=== PATIENT | male | born 2000 | race Caucasian/White ===

== ENCOUNTER 2024-04-02 18:05 | Emergency (ER) | payer SELFPAY ==
[2024-04-02 18:10] VITALS: BP 120/82
[2024-04-02 18:18] VITALS: BP 120/82; BMI 26.2
--- NOTE | 2024-04-02 18:23 | ED.GENMED ---
History of Present Illness
General
Chief Complaint: Alcohol Problem
Source: patient and police
Time Seen by Provider: 04/02/24 18:14
Travel History
Have you had any contact with someone who has COVID-19?: No
Do you have any symptoms of coronavirus? Fever > 100 degrees, chills, cough, shortness of breath, sore throat, loss of taste or smell, muscle aches, or headache?: No
History of Present Illness
History of Present Illness:
23-year-old male brought to the emergency room for intoxication. Patient has history of alcohol misuse. He was arrested for public intoxication. After being seen by a deck engineer he was remanded to custody for 24 hours. Patient was taken to present
and the staff there refused him because they felt he was too intoxicated. Police spoke to patient's father who states the patient has severe alcohol use disorder. He has had alcohol withdrawal seizures.
Phy Exam
Physical Exam
Physical Exam:
General: Awake, Alert, Oriented X3. No acute distress somewhat intoxicated
Vitals: unremarkable
Head: Atraumatic
Eyes: Pupils equal, EOMI
Throat: Airway intact, no exudates
Neck: Trachea midline
Lungs: Clear and equal b/l
Heart: Regular rate, no murmurs
Abd: Soft, Nontender, No pulsatile mass
Neuro: Nonfocal
Skin: Warm, dry, no rash
Extremities: pulses equal b/l, no edema
Scores
Withdrawal Assessment of Alcohol
Withdrawal Assessment Completed?: Not applicable
Course
Orders/Labs/Results
Orders:
Orders
04/02/24 18:23
0.9% Sodium Chloride 1000 ml [Nss] 1,000 ml IV BOLUS
04/02/24 18:25
Basic Metabolic Panel Urgent
Abnormal Lab Results
04/02/24
18:25
Chloride 109 H mmol/L
(98-107)
04/02/24 18:25
Vital Signs
Initial and Last Documented VS:
Initial Vital Signs
Pulse Resp BP
77 15 120/82
04/02/24 18:10 04/02/24 18:10 04/02/24 18:10
Last Documented Vital Signs
Temp Pulse Resp BP Pulse Ox
98.1 F 78 16 124/64 96
04/02/24 18:18 04/02/24 19:30 04/02/24 19:30 04/02/24 19:00 04/02/24 18:30
MDM/Problems Addressed
Differential Diagnosis Includes:
Alcohol intoxication
MDM/Problems Addressed:
Patient was arrested by police for public intoxication. He has a license from [place] and therefore was placed under arrest and seen by a deck engineer who remanded him to custody of the present for 24 hours. When the police surgeon attempted to
take the patient to correction they refused to accept him without medical clearance. Patient admits to drinking alcohol. He denies other drug use. He was observed in the emergency room for 2 hours and had a positive trajectory. He was able to stand
and ambulate on his own. There is no medical issue requiring hospitalization or treatment. He is cleared for incarceration. I appreciate that the patient has had issues with alcohol withdrawal in the past. There is certainly no indication for
benzos at this time. The present should obviously be familiar with inmates who have drug and alcohol use disorder and protocols for such.
*Pulse Oximetry
Patient hypoxic: no
*Critical Care Note
Total Time (30-74mins, 75-104mins- exclusive of procedures): Not Applicable
ED Attending Note
-
Portions of this chart may have been created with voice recognition software.� Occasional wrong word or��sound alike� substitutions may have occurred due to the inherent limitations of voice recognition software.
Discharge Plan
Departure
Patient Disposition: Intermediate
Date of Disposition: 04/02/24
Time of Disposition: 19:55
Condition: Good
Discharge Problem:
Alcohol intoxication
Instructions: Alcohol Intoxication ED
Prescriptions:
No Action
No Current Medications
0
Activity Restrictions/Additional Instructions:
Pt is cleared for incarceration
Interventions
Interventions:
*Risk Screen - Suicide Last Done: 04/02/24 18:18
*General Assessment Last Done: 04/02/24 18:18
*Neglect/Abuse Screening Last Done: 04/02/24 18:18
ED- Fall Risk Assessment Last Done: 04/02/24 20:00
*ED COVID-19 Vaccine History Last Done: 04/02/24 18:18
*Nursing Disposition Last Done: 04/02/24 20:00
ED- Neurological Assessment Last Done: 04/02/24 18:26
ED-Psychological Assessment Last Done: 04/02/24 18:26
Discharge Date and Time
Discharge Date/Time: 04/02/24 20:13
Print Language: STATELESS
[2024-04-02] MEDS: NSS 1000 IV (18:26)
[2024-04-02 18:55] LABS: Blood Urea Nitrogen 10 mg/dl (9-20); Calcium 8.6 mg/dl (8.4-10.2); Carbon Dioxide 24 mmol/L (22-30); Chloride 109 mmol/L (98-107); Estimated Creatinine Clearance > 125 ml/min; Glucose 91 mg/dl (70-99); Potassium 3.9 mmol/L (3.5-5.1); Sodium 143 mmol/L (135-145); eGFR > 60.00
[2024-04-02 19:00] VITALS: BP 124/64
== END 2024-04-02 20:13 ==
LOC: EMR 18:05
PROVIDERS: EMERGENCY PHYSICIAN Emergency Medicine
DX: F10.229 Alcohol dependence with intoxication, unspecified (principal); Z65.3 Problems related to other legal circumstances; Z02.79 Encounter for issue of other medical certificate; R56.9 Unspecified convulsions
CPT/HCPCS: 99284; 96360; 80048

== ENCOUNTER 2024-05-12 08:52 | Inpatient (IN) | payer OTHER, SELFPAY ==
[2024-05-12] VITALS (13 sets, daily range): BP systolic 118–169; BP diastolic 70–145; BMI 25.3
--- NOTE | 2024-05-12 06:06 | ED.GENMED ---
History of Present Illness
General
Chief Complaint: Withdrawal Symptoms
Source: patient and family
Exam Limitations: none
Time Seen by Provider: 05/12/24 05:57
Nursing documentation reviewed up to this point in time: agreed with
History of Present Illness
History of Present Illness:
23-year-old male presents emergency department due to alcohol withdrawal seizures. He had seizures yesterday. His last drink was 12 hours ago. He has had withdrawal in the past and has been to rehab in the past.
Past History
Past History
ED Past Medical History: Seizures (Alcohol withdrawal)
ED Past Surgical History: Orthopedic (Left arm surgery)
Social History
Tobacco: Smoker
Alcohol: Chronic alcoholic
Drug: Cocaine
Living: with family
Review of Systems
Review of Systems
Allergies reviewed?: Yes
All Other Systems: Not applicable
Constitutional: Reports no symptoms
EENT: Reports no symptoms
Respiratory: Reports no symptoms
Cardiac: Reports no symptoms
ABD/GI: Reports no symptoms
: Reports no symptoms
Musculoskeletal: Reports no symptoms
Skin: Reports no symptoms
Neurological: Reports other (Seizures, tremor)
Endocrine: Reports no symptoms
Hematologic/Lymphatic: Reports no symptoms
Psychiatric: Reports no symptoms
Phy Exam
Physical Exam
Physical Exam:
Physical Exam
General: Hypertensive, afebrile
Neck: supple. no meningeal signs. normal posterior pharynx
Heart: s1/s2 regular rate and rhythm, no murmur. equal radial
pulses.
HEENT: Pupils equal round reactive to light, EOMI
Lungs: no acute respiratory distress. clear bilaterally
Abdomen: normal bowel sounds. not tender. no CVAT
Neuro: alert and oriented. no focal neurological deficits cranial nerves II through XII intact, tremor
Skin: no rash
Psychiatric: well kept. interactive and cooperative
Extremities: no edema. no calf tenderness. negative homans. good distal pulses
Scores
Withdrawal Assessment of Alcohol
Withdrawal Assessment Completed?: Yes
Nausea and Vomiting: Mild nausea with no vomiting
Tactile Disturbances: Moderately severe hallucinations
Tremor: Moderate, with patient's arms extended
Auditory Disturbances: Not present
Paroxysmal Sweats: No sweat visible
Visual Disturbances: Moderate sensitivity
Anxiety: Mild anxiety
Headache, Fullness in Head: Not present
Agitation: Normal activity
Orientation and clouding of sensorium: Oriented and can do serial additions
Total CIWA Score: 13
Alcohol Withdrawal Medication Recommendation: Equal to MSAS Score 5-7. Lorazepam 1mg IV or PO NOW & re-assess q2hrs
Course
Orders/Labs/Results
Orders:
Orders
05/12/24 06:05
IV Insert/Care/Rem.- Treatment PRN
05/12/24 06:06
Lorazepam [Ativan] 1 mg IV NOW STA
05/12/24 06:15
0.9% Sodium Chloride 1000 ml [Nss] 1,000 ml IV 999 mls/hr
05/12/24 06:32
Alcohol Urgent
Complete Blood Count/With Diff Urgent
Comprehensive Metabolic Panel Urgent
Magnesium Urgent
Phosphorus Urgent
Prothrombin Time Urgent
05/12/24 06:37
Electrocardiogram (*1) Stat
Reason for Study: Other
Other Reason for Exam: alcohol withdrawal, seizure
Electrocardiogram (*1) Urgent
Reason for Study: QTc Monitoring
EKG- Treatment ONCE
05/12/24 07:27
FOLic ACID [Folvite] 1 mg 0.9% Sodium Chloride 50 ml [Nss] 50 ml IV NOW
05/12/24 07:45
Fentanyl, Urine Urgent
Urinalysis Reflex To Culture Urgent
Date Specimen was Collected: 05/12/24
Time Specimen was Collected: 07:21
Urine Drug Abuse Screen Urgent
Date Specimen was Collected: 05/12/24
Time Specimen was Collected: 07:21
05/12/24 07:59
Admit/Transfer Patient As Directed
Co-Sign Provider:
Level of Care: Inpatient admission
Assign to:: ICU
Physician / Group: DR Perez
Diagnosis: Seizure/Alcohol withdrawal
Reason for Hospitalization: pte p/w alcohol withdarwal seizures
Expected length of stay greater than two midnights?: Yes
ELOS- Estimated Length of Stay in days: 2
I certify the patient meets the requirements for IP care: Yes
05/12/24 08:00
Code Status As Directed
Resuscitation Status: Full Code
05/12/24 08:06
Neurological Checks As Directed
Frequency: Per unit guidelines
05/12/24 08:15
0.9% Sodium Chloride 1000 ml [Nss] 1,000 ml IV 100 mls/hr
Abnormal Lab Results
05/12/24 05/12/24
06:32 07:45
WBC 4.5 L 10^3/uL
(4.8-10.8)
Immature Gran % 0.9 H %
(0-0.5)
Monocytes % 10.1 H %
(1.7-9.3)
Carbon Dioxide 19 L mmol/L
(22-30)
BUN 6 L mg/dl
(9-20)
Glucose 102 H mg/dl
(70-99)
Phosphorus 2.4 L mg/dl
(2.5-4.5)
Urine Cocaine Screen Positive H
(Negative)
05/12/24 06:32
05/12/24 06:32
Vital Signs
Initial and Last Documented VS:
Initial Vital Signs
Pulse Resp BP Pulse Ox
90 18 169/145 100
05/12/24 05:48 05/12/24 05:48 05/12/24 05:48 05/12/24 05:48
Last Documented Vital Signs
Pulse Resp BP Pulse Ox
107 14 128/75 97
05/12/24 09:15 05/12/24 09:15 05/12/24 08:30 05/12/24 08:30
MDM/Problems Addressed
Differential Diagnosis Includes:
Alcohol withdrawal, epileptic seizures
MDM/Problems Addressed:
23-year-old male with alcohol withdrawal seizures. Admit to hospitalist.
Chronic conditions affecting care: Other (Chronic alcoholic)
Acute Exacerbation and/or Progression of Chronic Illness: Other (Chronic alcoholic)
*Pulse Oximetry
Patient hypoxic: no
*EKG
Interpreted by ED Provider?: Yes
EKG Intrepretation Date: 05/12/24
EKG Intrepretation Time: 06:42
Interpretation: normal
Comparison EKG: no comparison EKG present
Heart Rate: 81
Rate: normal
Rhythm: sinus and sinus arrhythmia
[place]: normal axis
Interval: normal interval
QRS Pattern: normal QRS
Ischemia: no ischemia
*Model [employer] Plaster Interpretation
Rate: normal
Interpretation: normal
Heart Rate: 80
Rhythm: sinus
*Critical Care Note
Total Time (30-74mins, 75-104mins- exclusive of procedures): 30
comment:
Critical care statement: A total of 30 minutes of critical care time was provided for this patient. This includes management of unstable vital signs, evaluation of the patient at bedside, reviewing the patient's pertinent medical records, discussion
with consultants, review of old EKGs and review of pertinent medical records. This time with separate from time utilized to perform the aforementioned documented procedures
ED Attending Note
-
Portions of this chart may have been created with voice recognition software.� Occasional wrong word or��sound alike� substitutions may have occurred due to the inherent limitations of voice recognition software.
Discharge Plan
Departure
Patient Disposition: Admit
Date of Disposition: 05/12/24
Time of Disposition: 07:13
Admit to: ICU
Presentation/result/management discussed w/ accepting MD/DO: Hospitalist
Patient with high blood pressure during this ER visit?: Yes
Condition: Fair
Discharge Problem:
Alcohol withdrawal seizure
Interventions
Interventions:
ED- Fall Risk Assessment Last Done: 05/12/24 06:37
ED- Neurological Assessment Last Done: 05/12/24 06:37
ED-Psychological Assessment Last Done: 05/12/24 06:37
[2024-05-12] MEDS: NSS 1000 IV ×3 (06:25→19:00)
[2024-05-12] MEDS: ATIVAN 1 MG IV (06:26)
[2024-05-12 06:51] LABS: % Basophils 1.5 % (0-2); % Eosinophils 2.4 % (0-6); % Immature Granulocytes 0.9 % (0-0.5); % Lymphocytes 39.4 % (20.5-51.1); % Monocytes 10.1 % (1.7-9.3); % Neutrophils 45.7 % (42.2-75.2); Absolute Basophils 0.1 10^3/uL (0-0.2); Absolute Eosinophils 0.1 10^3/uL (0-0.7); Absolute Lymphocytes 1.8 10^3/uL (1.2-3.4); Absolute Monocytes 0.5 10^3/uL (0.1-0.6); Absolute Neutrophils 2.1 10^3/uL (1.4-6.5); Hematocrit 44.3 % (39.0-52.0); Hemoglobin 15.5 g/dL (13.0-18.0); Mean Corpuscular Hgb 30.3 pg (27.0-31.0); Mean Corpuscular Volume 86.7 fL (80.0-94.0); Mean Platelet Volume 9.7 fL (7.4-10.4); Nucleated Red Blood Cells % 0 % (-); Platelet Count 248 10^3/uL (130-400); Red Blood Cell Count 5.11 10^6/uL (4.70-6.10); White Blood Cell Count 4.5 10^3/uL (4.8-10.8)
[2024-05-12 07:03] LABS: INR 1.11; PT 14.1 Sec (11.4-14.6)
[2024-05-12 07:04] LABS: ALT (SGPT) 20 U/L (0-50); AST (SGOT) 28 U/L (17-59); Albumin 4.4 g/dl (3.5-5.0); Alcohol 104 mg/dl; Alkaline Phosphatase 98 U/L (38-126); Blood Urea Nitrogen 6 mg/dl (9-20); Calcium 8.9 mg/dl (8.4-10.2); Carbon Dioxide 19 mmol/L (22-30); Chloride 106 mmol/L (98-107); Estimated Creatinine Clearance > 125 ml/min; Glucose 102 mg/dl (70-99); Magnesium 1.7 mg/dl (1.6-2.3); Phosphorus 2.4 mg/dl (2.5-4.5); Potassium 3.7 mmol/L (3.5-5.1); Sodium 141 mmol/L (135-145); Total Bilirubin 0.8 mg/dl (0.2-1.3); Total Protein 6.7 g/dl (6.3-8.2); eGFR > 60.00
[2024-05-12] MEDS: NSS IV ×5 (07:21→12:43)
[2024-05-12] MEDS: FOLVITE 50.2000000000000028 MG IV (07:48)
[2024-05-12 08:03] LABS: Urine Albumin Negative (Neg - Trace); Urine Bilirubin Negative (Negative); Urine Character Clear (Clear); Urine Color Yellow; Urine Glucose Negative (Negative); Urine Ketone Negative (Negative); Urine Leukocyte Negative (Negative); Urine Nitrite Negative (Negative); Urine Occult Blood Negative (Negative); Urine Urobilinogen Negative (Neg - 1+)
--- NOTE | 2024-05-12 08:05 | HPS.HSE ---
Family Physician
-
Family Physician: * NONE
Chief Complaint
-
Seizures
History of Present Illness
Patient 23 years old male with history of alcohol use disorder came into the hospital with generalized anxiety and having a seizure event yesterday. Patient has been drinking more than usual and his last drink was about 12 hours ago and he has been
trying to detox by himself and had a seizure yesterday. Patient continues to have anxiety, nausea, generalized withdrawal symptoms and decided to come to the hospital for further evaluation. She denies chest pain or shortness of breath. Denies
fevers or chills. He was referred to hospitalist service for further evaluation.
Medical History
Past Medical History
Past Medical History: Reports Other (Alcohol use disorder.)
Past Surgical History: Reports None
Social History
Tobacco: Smoker
Alcohol: Daily
Drug: None
Family History
Family History: Not pertinent
Allergies / Home Medications
Allergies reflects when Allergies were last updated in [facility].
Home Medications with original date entered in [facility]
Allergy/Medication List:
Allergies
Allergy/AdvReac Type Severity Reaction Status Date / Time
NKA - No Known Allergies Allergy Pharmacy Uncoded 05/12/24 05:48
to Review
Home Medications
dextran 70-hypromellose eye drops in a dropperette (Artificial Tears (PF) drops in a dropperette) 2 drp BOTH EYES DAILYPRN PRN dry eyes 05/12/24
ibuprofen 200 mg tablet 600 mg PO BIDPRN PRN mild pain 05/12/24
Review of Systems
-
A 12 point ROS was completed and negative except as noted: Yes
Physical Exam
Vital Signs
Vital Signs
Pulse Resp BP Pulse Ox
86 15 130/89 98
05/12/24 07:15 05/12/24 07:15 05/12/24 07:00 05/12/24 07:15
Physical exam:
General: Well Developed, Well Nourished and mild Apparent Distress
HEENT: Normocephalic, Atraumatic and Moist Mucous Membranes
Respiratory: Clear to Auscultation; Negative Wheezes, Rales or Rhonchi
Cardiac: Regular Rhythm and S1/S2
GI: Soft, Nontender and Nondistended
Musculoskeletal: No Clubbing, No Cyanosis and No Edema
Neuro: Awake, Alert and Oriented. Tremors present. No nystagmus. No tongue fasciculation
Psych: Calm
Physical Exam
General: Other
Laboratory Results
-
05/12/24 06:32
05/12/24 06:32
Laboratory Results
PT 14.1 Sec (11.4-14.6) 05/12/24 06:32
INR 1.11 05/12/24 06:32
Total Bilirubin 0.8 mg/dl (0.2-1.3) 05/12/24 06:32
AST 28 U/L (17-59) 05/12/24 06:32
ALT 20 U/L (0-50) 05/12/24 06:32
Alkaline Phosphatase 98 U/L (38-126) 05/12/24 06:32
Data Reviewed
-
Lab Data: Labs Reviewed by me
Impression/Plan
-
IMPRESSION:
Patient 23 years old man with history of alcohol abuse came into the hospital with alcohol withdrawal. Patient had a seizure alcohol withdrawal. Patient at high risk of alcohol withdrawal morbidity mortality including delirium tremens so needs to
be monitored in the hospital and manage accordingly.
Impression:
Alcohol withdrawal
Conditions prior to presentation:
Alcohol use disorder
PLAN:
IV fluids
MSA protocol including Ativan as needed
Thiamine and folate
B-CARES evaluation
gun club manager eval for discharge disposition
Lovenox SQ for DVT prophylaxis
CODE STATUS full code
Will give further recommendations based on his clinical course
Time spent 55 minutes
[2024-05-12 08:15] LABS: Amphetamines Negative (Negative); Barbiturates Negative (Negative); Benzodiazepines Negative (Negative); Buprenorphine Negative (Negative); Cocaine Positive (Negative); Marijuana Negative (Negative); Methadone Negative (Negative); Methamphetamines Negative (Negative); Opiates Negative (Negative); Phencyclidine Negative (Negative); Tricyclic Antidepressants Negative (Negative)
[2024-05-12 09:00] LABS: Fentanyl, Urine Negative (Negative)
[2024-05-12] MEDS: FOLVITE 1 MG PO (12:48)
[2024-05-12] MEDS: THIAMINE INJECTION 200 MG IV (20:07)
[2024-05-13 03:00] VITALS: BP 119/65
[2024-05-13] MEDS: NSS 1000 IV (04:17)
[2024-05-13 07:05] VITALS: BP 131/68
[2024-05-13 07:42] LABS: % Basophils 1.2 % (0-2); % Eosinophils 3.8 % (0-6); % Immature Granulocytes 0.7 % (0-0.5); % Lymphocytes 28.9 % (20.5-51.1); % Monocytes 11.3 % (1.7-9.3); % Neutrophils 54.1 % (42.2-75.2); Absolute Basophils 0.1 10^3/uL (0-0.2); Absolute Eosinophils 0.2 10^3/uL (0-0.7); Absolute Lymphocytes 1.7 10^3/uL (1.2-3.4); Absolute Monocytes 0.7 10^3/uL (0.1-0.6); Absolute Neutrophils 3.2 10^3/uL (1.4-6.5); Hematocrit 43.2 % (39.0-52.0); Hemoglobin 15.4 g/dL (13.0-18.0); Mean Corp Hgb Conc. 35.6 g/dL (33.0-37.0); Mean Corpuscular Hgb 30.7 pg (27.0-31.0); Mean Corpuscular Volume 86.2 fL (80.0-94.0); Mean Platelet Volume 10.2 fL (7.4-10.4); Nucleated Red Blood Cells % 0 % (-); Platelet Count 235 10^3/uL (130-400); Red Blood Cell Count 5.01 10^6/uL (4.70-6.10); Red Cell Dist. Width 11.9 % (11.5-14.5); White Blood Cell Count 5.9 10^3/uL (4.8-10.8)
--- NOTE | 2024-05-13 08:13 | W.PN.HOSP.TC ---
Today's Communication/Plan
-
Discharge planning today.
Assessment / Plan
Assessment / Plan
Physical exam:
General: Well Developed, Well Nourished and No Apparent Distress
HEENT: Normocephalic, Atraumatic and Moist Mucous Membranes
Respiratory: Clear to Auscultation; Negative Wheezes, Rales or Rhonchi
Cardiac: Regular Rhythm and S1/S2
GI: Soft, Nontender and Nondistended
Musculoskeletal: No Clubbing, No Cyanosis and No Edema
Neuro: Awake, Alert and Oriented
Psych: Calm
A/P:
Impression:
Alcohol withdrawal with presumed seizures-currently no active withdrawal
Polysubstance abuse
Nicotine use disorder
Conditions prior to presentation:
Alcohol use disorder
PLAN:
Patient anxious today but no signs of withdrawal at all. He has not required any benzodiazepines.
Urine toxicology positive for cocaine.
Stop IV fluids
Discontinue cardiac monitoring
Discussed with RN at bedside
Plan to discharge today
Has not required any benzodiazepines from alcohol withdrawal today.
B-CARES evaluation
leasing property manager eval for discharge disposition
Lovenox SQ for DVT prophylaxis
CODE STATUS full code
Anticipated Discharge: Today
Subjective/Interval History
-
Date of Service: May 13, 2024
Patient anxious today but no signs of withdrawal at all. He has not required any benzodiazepines. He denies any nausea or vomiting or palpitations or chest pain or shortness of breath.
Objective Data
-
Labs:
Laboratory Results
05/13/24
07:01
WBC 5.9
Hgb 15.4
Hct 43.2
Plt Count 235
Sodium Pending
Potassium Pending
Chloride Pending
Carbon Dioxide Pending
BUN Pending
Creatinine Pending
Glucose Pending
Calcium Pending
Total Bilirubin Pending
AST Pending
ALT Pending
Alkaline Phosphatase Pending
Vital Signs:
Vital Signs
Temp Pulse Resp BP Pulse Ox
98.4 F 69 16 131/68 99
05/13/24 07:05 05/13/24 07:05 05/13/24 07:05 05/13/24 07:05 05/13/24 07:05
I&O
05/12/24 05/13/24 05/14/24
06:59 06:59 06:59
Intake Total 3120 / 3120
Balance 3120 / 3120
[2024-05-13 08:24] LABS: ALT (SGPT) 25 U/L (0-50); AST (SGOT) 36 U/L (17-59); Albumin 4.1 g/dl (3.5-5.0); Alkaline Phosphatase 110 U/L (38-126); Blood Urea Nitrogen 7 mg/dl (9-20); Calcium 9.2 mg/dl (8.4-10.2); Carbon Dioxide 23 mmol/L (22-30); Chloride 108 mmol/L (98-107); Estimated Creatinine Clearance > 125 ml/min; Glucose 93 mg/dl (70-99); Potassium 3.9 mmol/L (3.5-5.1); Sodium 139 mmol/L (135-145); Total Bilirubin 1.8 mg/dl (0.2-1.3); Total Protein 6.3 g/dl (6.3-8.2); eGFR > 60.00
[2024-05-13] MEDS: FOLVITE 1 MG PO (08:33)
[2024-05-13] MEDS: THIAMINE INJECTION 200 MG IV (08:33)
--- NOTE | 2024-05-13 11:04 | CM ---
ABIGAIL met with Nicolas this AM to provide support and offer [facility] contact for ongoing assistance.
Nicolas recently moved to this area from [place] and has been working as a gallery or museum curator (day work); currently uninsured. He has been in recovery, relapsed and was trying to detox himself at home, however he had a seizure and ultimately
presented to the hospital. He advised that he is in a mandatory outpatient treatment program, but was not able to provide any details.
Nicolas has a sponsor, but not locally. He is familiar with the [employer] and will use this to find local AA meetings for support.
Nelda from [facility] will be calling Nicolas on his cell phone to discuss options and assist with resources and planning.
Plan: Nicolas will return home and pursue services based on options discussed with [facility]. He is anxious to go home today and plans to go to work tomorrow.
--- NOTE | 2024-05-13 12:16 | W.DCSUMMARY ---
Discharge Summary
Discharge Data
Date of Admission: 05/12/24
Date of Discharge: 05/13/24
-
Pending Results: No
Hospital Course
Patient 22 years old male with history of alcohol use disorder came into the hospital for alcohol withdrawal. Patient has reported anesthesia prior to coming the day before NDT INSPECTOR. He was started on alcohol withdrawal protocol. His urine toxicology
was positive for cocaine. His labs were unremarkable including electrolytes and liver function test and renal function. Patient required minimal benzodiazepines the first day but the second days he has not required any benzodiazepines and he is
eager to go home. Patient discussed with watch caser and [facility] for alcohol and drug rehabilitation options. Patient is going to be discharged in relatively stable condition today.
Discharge Plan
-
Patient Disposition: Home (Routine Discharge)
Discharge Diagnosis/Procedures: Alcohol use disorder. Alcohol withdrawal. Anxiety, unspecified.
Diet: Regular
Additional Diets: Abstain from alcohol or cocaine or any other illicit drugs. No smoking or vaping.
Activity: As tolerated
Blood Work: Please PCP to order CBC, CMP within 1 week
Stand Alone Forms: Return to Work
Referrals:
Primary care, provider [Other] (See less than 1 week)
Prescriptions:
Continued
ibuprofen 200 mg Tablet
600 mg PO BIDPRN PRN (Reason: mild pain)
Artificial Tears (PF) Dropperette
2 drp BOTH EYES DAILYPRN PRN (Reason: dry eyes)
Discharge Orders:
Discharge Patient (As Directed); Ordered 05/13/24
Ordered By: Timmy Perez
Discharge Date and Time
Discharge Date/Time: 05/13/24 13:23
Print Language: KAZAKH
[2024-05-13 12:44] VITALS: BP 133/89
== END 2024-05-13 13:23 | disposition home or self-care (01) | DRG 897 ==
LOC: 4 EAST ACU 08:52
PROVIDERS: ADMITTING PHYSICIAN Hospitalist; EMERGENCY PHYSICIAN Emergency Medicine
DX: F10.239 Alcohol dependence with withdrawal, unspecified (principal); F17.200 Nicotine dependence, unspecified, uncomplicated; F41.9 Anxiety disorder, unspecified
CPT/HCPCS: 80053; 80306; 80307; 81003; 82077; 83735; 84100; 85025; 85610; 93005; 96365; 96375; 99291; 99406

== ENCOUNTER 2025-09-24 21:22 | Inpatient (IN) | payer OTHER, SELFPAY ==
[2025-09-24] VITALS (8 sets, daily range): BP systolic 117–146; BP diastolic 71–102; BMI 27.0; BMI 26.8
[2025-09-24 16:41] LABS: Hematocrit 46.3 % (39.0-52.0); Hemoglobin 15.6 g/dL (13.0-18.0); Mean Corp Hgb Conc. 33.7 g/dL (33.0-37.0); Mean Corpuscular Volume 89.2 fL (80.0-94.0); Nucleated Red Blood Cells % 0 % (-); Platelet Count 250 10^3/uL (130-400); Red Cell Dist. Width 13.3 % (11.5-14.5)
[2025-09-24 16:57] LABS: ALT (SGPT) 148 U/L (0-50); AST (SGOT) 264 U/L (17-59); Albumin 4.7 g/dl (3.5-5.0); Alkaline Phosphatase 116 U/L (38-126); Blood Urea Nitrogen 7 mg/dl (9-20); Calcium 8.9 mg/dl (8.4-10.2); Carbon Dioxide 24 mmol/L (22-30); Chloride 110 mmol/L (98-107); Estimated Creatinine Clearance > 125 ml/min; Glucose 96 mg/dl (70-99); Potassium 3.6 mmol/L (3.5-5.1); Sodium 147 mmol/L (135-145); Total Protein 7.3 g/dl (6.3-8.2); eGFR > 60.00
[2025-09-24] MEDS: ATIVAN 1 MG IV ×2 (17:03→20:13)
[2025-09-24] MEDS: NSS 1000 IV (17:03)
[2025-09-24 17:33] LABS: Ammonia < 9 umol/L (9-30)
[2025-09-24] MEDS: ATIVAN 2 MG IV (18:37)
--- NOTE | 2025-09-24 19:48 | ED.GENMED ---
History of Present Illness
General
Chief Complaint: Alcohol Problem
Source: patient
Time Seen by Provider: 09/24/25 16:30
History of Present Illness
History of Present Illness:
Note:
CHIEF COMPLAINT(S)
Alcohol withdrawal symptoms, facial twitching, and concerns of not eating for several days.
HISTORY OF PRESENT ILLNESS
The patient, a 24-year-old male, presents with symptoms consistent with alcohol withdrawal. He reports consuming significant amounts of alcohol regularly and has decided to decrease his intake due to the negative impact it has had on his life. He
states that he has been experiencing facial twitching and has not eaten for the past four days. He expresses concern about electrolyte disturbances potentially causing these symptoms. The patient has a history of previous attempts to stop drinking
and managed a period of sobriety, but ultimately resumed alcohol consumption. He admits to recent use of Xanax, though claims its not habitual. He denies recent fevers, injuries, or experiencing any recent cuts or lacerations.
The patient mentions prior episodes that required medical attention due to alcohol use, previously involving medication like Librium. He is concerned about his ability to work and manage family responsibilities, mentioning the importance of
maintaining his role for his child. He seeks a solution that enables him to return to work promptly.
PAST MEDICAL AND SURGICAL HISTORY
The patient underwent right ankle surgery last year in May 2022. He also reports using Xanax recently.
SOCIAL DETERMINANTS AFFECTING HEALTH
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 There is an expressed need to return to work, indicating financial pressures.
MEDICATIONS
No current medications mentioned.
REVIEW OF SYSTEMS
- General: No recent fevers.
- Neurological: Reports facial twitching.
- Gastrointestinal: Reports not eating for the last four days.
- Musculoskeletal: No recent injuries.
- Respiratory: No recent respiratory concerns.
- Skin: No recent lacerations or injuries reported.
PHYSICAL EXAM
General: Alert, no acute distress observed.
Skin: Warm, well-perfused.
Head: Facial twitching noted; normocephalic, atraumatic.
Neck: Supple, trachea midline.
Eye, Ears, Nose, and Mouth: Oral mucosa moist.
Cardiovascular: Regular rhythm, no edema.
Respiratory: Respirations are non-labored.
Gastrointestinal: Abdomen nondistended.
Musculoskeletal: Normal range of motion, normal strength.
Neurological: Alert and oriented to person, place, time, and situation, facial twitching noted, no lower extremity twitching.
Psychiatric: Cooperative, appropriate mood & affect.
PROBLEM LIST
Acute:
- Alcohol withdrawal symptoms
- Facial twitching
- Starvation ketogenesis due to not eating
Chronic:
- History of alcohol dependence
- Previous right ankle surgery
PLAN
- Monitor patient and provide IV fluids to address dehydration and potential electrolyte imbalances.
- Evaluate lab results for electrolyte disturbances and liver function.
- Discuss options for alcohol withdrawal management, including possible Librium treatment.
- Consider rehabilitation options if labs indicate significant issues.
- Update tetanus immunization as needed.
DIFFERENTIAL DIAGNOSIS
The Differential Diagnosis includes, in no particular order and is not limited to:
- Alcohol withdrawal syndrome
- Electrolyte imbalance, possibly hyponatremia or hypocalcemia
- Alcoholic ketoacidosis
- Anxiety-induced twitching
- Nutritional deficiencies secondary to poor intake
- Primary neuromuscular disorder
- Thyroid dysfunction
- Medication side effects, including from Xanax use
- Hepatic encephalopathy due to liver dysfunction
- Structural brain disorder (e.g., seizure activity secondary to chronic alcohol use)
CARE-UPDATE
09/24/25 - 19:48
Patient agreed to stay overnight for stabilization. Blood pressure and heart rate remain elevated, suggesting active withdrawal. Facial twitching has ceased. Plan is to administer IV fluids to improve stability. Patient will be considered for taper
upon discharge, with follow-up in outpatient care. Discussed the possibility of using naltrexone or alternatives in the future. Encouraged patient to focus on immediate recovery and reassess work obligations as condition improves. Will order
additional labs for further assessment.
Disposition:
SUMMARY OF ENCOUNTER
A 24-year-old male presented with facial twitching, potentially indicative of focal seizures, and symptoms consistent with alcohol withdrawal. The patients twitching resolved after administration of intravenous lorazepam. Initial labs showed
hyponatremia, elevated liver function tests, normal ammonia levels, and electrolyte imbalances. Due to persistent hypertension, elevated EWS score, and a history of seizures, the decision was made to admit the patient for further monitoring and
management.
DISPOSITION
Admit.
ASSESSMENT
The patient likely experienced focal seizures as part of alcohol withdrawal syndrome, compounded by electrolyte imbalance and potentially other systemic stressors.
EMERGENCY TREATMENTS ADMINISTERED
Intravenous lorazepam (Ativan).
REASSESSMENT
On reassessment, facial twitching resolved following administration of intravenous lorazepam.
PLAN
Admit the patient for further monitoring and treatment for suspected seizures due to alcohol withdrawal. Continue to monitor and manage hypertension, electrolyte imbalances, and liver function abnormalities. Initiate a benzodiazepine taper and
evaluate for longer-term care options like rehabilitation.
INDEPENDENT REVIEW OF LABS AND INTERPRETATION OF TESTS
- My independent review of the CBC is normal.
- My independent review of chemistry indicates hyponatremia (sodium 147 mmol/L), potassium 3.6 mmol/L, chloride 110 mmol/L, and creatinine 0.8 mg/dL.
- My independent review of liver function tests shows elevated levels (AST 264 U/L, ALT 148 U/L).
- My independent review of ammonia levels is normal.
MEDICAL DECISION MAKING
-Complexity of Data Reviewed: Chronic conditions affecting care include history of alcohol dependence and seizures. Differential diagnosis includes alcohol withdrawal syndrome, electrolyte imbalances, alcoholic ketoacidosis, and potential focal
seizures.
-Data:
Category 1
Non-emergency department records reviewed, if applicable. External record reviewed: None noted.
Category 3
Discussions regarding the management of the patients care were not mentioned in the transcript.
-Risk:
Admit patient due to complex presentation: Seizure activity possibly related to alcohol withdrawal and requiring stabilization with IV medication, electrolyte imbalance management, and potential liver dysfunction monitoring.
DIAGNOSIS
- Alcohol withdrawal syndrome (ICD-10: F10.239)
- Focal seizures, resolving (ICD-10: G40.89)
- Hyponatremia (ICD-10: E87.1)
- Abnormal liver function tests (ICD-10: R94.5)
Past History
Past History
ED Past Medical History: Seizures (Alcohol withdrawal)
ED Past Surgical History: Orthopedic (Left arm surgery)
Social History
Tobacco: Smoker
Alcohol: Chronic alcoholic
Drug: Cocaine
Living: with family
Phy Exam
Physical Exam
Physical Exam:
.
Scores
Withdrawal Assessment of Alcohol
Withdrawal Assessment Completed?: Yes
Nausea and Vomiting: Mild nausea with no vomiting
Tactile Disturbances: None
Tremor: Moderate, with patient's arms extended
Auditory Disturbances: Not present
Paroxysmal Sweats: Beads of sweat obvious on forehead
Visual Disturbances: Not present
Anxiety: Moderately anxious, or guarded, so anxiety is inferred
Headache, Fullness in Head: Not present
Agitation: Moderately fidgety and restless
Orientation and clouding of sensorium: Oriented and can do serial additions
Total CIWA Score: 17
Alcohol Withdrawal Medication Recommendation: Equal to MSAS Score 8-11. Lorazepam 1-2mg IV NOW & re-assess q1hr
Course
Orders/Labs/Results
Orders:
Orders
09/24/25 Dinner
Regular
At Your Request: Limited, Export Clerk Required
Does patient need a safe tray?: No
09/24/25 16:36
Alcohol Urgent
CBC/With Diff [Complete Blood Count/With Diff] Urgent
Comprehensive Metabolic Panel Urgent
Magnesium Urgent
Comment: ADD ON
09/24/25 16:46
0.9% Sodium Chloride 1000 ml [Nss] 1,000 ml IV BOLUS
Lorazepam [Ativan] 1 mg IV NOW STA
09/24/25 17:11
Ammonia Urgent
09/24/25 18:33
Lorazepam [Ativan] 2 mg IV NOW STA
09/24/25 19:52
Lorazepam [Ativan] 1 mg IV NOW STA
09/24/25 20:02
Potassium Chloride [KCl] 40 meq 0.9% Sodium Chloride 250 ml [Nss] 250 ml IV NOW
09/24/25 20:17
Add On- LAB Urgent
Tests Added?: mag
09/24/25 20:18
EKG [Electrocardiogram (*1)] Urgent
Reason for Study: Tachycardia
09/24/25 20:31
Urine Drug Abuse Screen Routine
Date Specimen was Collected: 09/24/25
Time Specimen was Collected: 20:26
09/24/25 20:58
Admit/Transfer Patient As Directed
Co-Sign Provider:
Level of Care: Inpatient admission
Assign to:: Telemetry
Physician / Group: niraj lynch
Diagnosis: Acute alcohol intoxication history of alcohol withdrawal seizures
Reason for Telemetry: Arrhythmia
Date to Stop Telemetry: 09/27/25
Time to Stop Telemetry: 11:00
Reason for Hospitalization: Acute alcohol intoxication history of alcohol withdrawal seizures
Expected length of stay greater than two midnights?: Yes
ELOS- Estimated Length of Stay in days: 4
I certify the patient meets the requirements for IP care: Yes
Code Status As Directed
Resuscitation Status: Full Code
09/24/25 21:00
0.9% Sodium Chloride 1000 ml [Nss] 1,000 ml Mvi, Adult [Multivitamin] 10 ml Thiamine Injection 100 mg IV 150 mls/hr
09/24/25 21:04
PRN Pain Medication Management As Directed
May give lesser potent ordered pain med per pt: Yes
preference::
Protocol:: Medication orders for pain may be administered in a
manner that supports deferring to patient preference
when the pt is:
- Requesting an ordered lesser potent pain medication.
Least to most potent pain medications are defined
as: acetaminophen < NSAID < tramadol < opioids
(morphine, oxycodone, hydromorphone).
- Requesting a lesser dose of the same medication IF
ORDERED.
- Requesting a less intrusive route of administration
if both routes are prescribed by the provider (PO <
IV).
09/24/25 21:25
Nicotine [Nicoderm Transdermal] 21 mg TRANSDERM DAILY
09/24/25 22:55
0.9% Sodium Chloride [Nss (Preservative Free)] See Protocol IV PRN PRN
FOLic ACID [Folvite] 1 mg 0.9% Sodium Chloride 50 ml [Nss] 50 ml IV DAILYPRN
Lorazepam [Ativan] 1 mg IV Q1HPRN PRN
Lorazepam [Ativan] 1 mg PO Q2HPRN PRN
Lorazepam [Ativan] 2 mg IV Q1HPRN PRN
Phenobarbital Sodium [Phenobarbital] 260 mg 0.9% Sodium Chloride 100 ml [Nss] 100 ml IV NOW
09/24/25 22:55
Case Management Consult Once
Case Management Consult: Other
Comment: Substance abuse counseling. pt wants intensive outpt at family services located at [facility]
snf in [place]
DIETARY IP CONSULT Routine
Reason for Consult: Nutrition support, possible refeeding guidelines
B-Hydroxybutyrate Urgent
GGTP Urgent
Magnesium Urgent
PTT Urgent
Phosphorus Urgent
Prothrombin Time Urgent
Urinalysis Routine
Activity As Directed
Activity Level: As Tolerated
MSAS SCORE As Directed
MSAS Score 0-4: Repeat MSAS every 2 hours until 0-4 for three consecutive assessments, then every 4 hours x 48
hours.
MSAS Score 5-7: For MILD withdrawl symptoms. Repeat MSAS and RASS every 2 hours
MSAS Score 8-11: For MODERATE withdrawal symptoms. Repeat MSAS and RASS every 1 hour. Consider ICU or IMU
level of care.
MSAS Score > 11: For SEVERE withdrawal symptoms. Repeat MSAS and RASS every 1 hour. Notify provider, consider
ICU level of care.
MSAS Additional Instructions: If no improvement or no decrease in score from severe to moderate within 12
hours, consult psychiatry
MSAS Notify Provider: Notify provider if patient requires more than 10 mg of Lorazepam in eight hour period.
Vital Signs As Directed
Frequency: Per unit guidelines
DX Deep Vein Thrombosis Video Routine
09/25/25 00:00
Thiamine Injection 200 mg IV Q8
09/25/25 06:00
Complete Blood Count/With Diff IN AM
Comprehensive Metabolic Panel IN AM
09/25/25 08:00
FOLic ACID [Folvite] 1 mg PO DAILY
Phenobarbital Sodium [Phenobarbital] 97.5 mg IV TID
09/25/25 18:00
Enoxaparin Sodium [Lovenox] 40 mg SC QPM
09/26/25 06:00
Complete Blood Count/With Diff IN AM
Comprehensive Metabolic Panel IN AM
09/27/25 06:00
Complete Blood Count/With Diff IN AM
Comprehensive Metabolic Panel IN AM
09/27/25 08:00
Phenobarbital [Luminal] 64.8 mg PO TID
09/27/25 11:00
DC Protocol for Telemetry ONCE
09/28/25 06:00
Complete Blood Count/With Diff IN AM
Comprehensive Metabolic Panel IN AM
09/28/25 08:00
Thiamine HCl [Vitamin B1] 100 mg PO BID
09/29/25 08:00
Phenobarbital [Luminal] 32.4 mg PO TID
Abnormal Lab Results
09/24/25 09/24/25
16:36 17:11
WBC 4.4 L 10^3/uL
(4.8-10.8)
Monocytes % 13.3 H %
(1.7-9.3)
Basophils % 2.3 H %
(0-2)
Sodium 147 H mmol/L
(135-145)
Chloride 110 H mmol/L
(98-107)
BUN 7 L mg/dl
(9-20)
AST 264 H U/L
(17-59)
ALT 148 H U/L
(0-50)
Ammonia < 9 L umol/L
(9-30)
Alcohol, Quantitative 511 H* mg/dl
09/24/25 16:36
09/24/25 16:36
Vital Signs
Initial and Last Documented VS:
Initial Vital Signs
Temp Pulse Resp BP Pulse Ox
98.5 F 104 18 144/87 98
09/24/25 16:23 09/24/25 16:23 09/24/25 16:23 09/24/25 16:23 09/24/25 16:23
Last Documented Vital Signs
Temp Pulse Resp BP Pulse Ox
98.2 F 102 16 117/73 97
09/24/25 23:13 09/24/25 23:13 09/24/25 23:13 09/24/25 23:13 09/24/25 23:13
*Pulse Oximetry
SaO2: 95
Oxygen Mode of Delivery: Room air
Patient hypoxic: no
*Critical Care Note
Total Time (30-74mins, 75-104mins- exclusive of procedures): 35 minutes
ED Attending Note
-
Portions of this chart may have been created with voice recognition software.� Occasional wrong word or��sound alike� substitutions may have occurred due to the inherent limitations of voice recognition software.
Discharge Plan
Departure
Patient Disposition: Admit
Date of Disposition: 09/24/25
Time of Disposition: 19:50
Admit to: IMU
Presentation/result/management discussed w/ accepting MD/DO: Hospitalist
Discharge Problem:
acute alcohol withdrawal
Interventions
Interventions:
*Risk Screen - Suicide Last Done: 09/24/25 16:28
*General Assessment Last Done: 09/24/25 16:27
*Neglect/Abuse Screening Last Done: 09/24/25 16:28
*ED- Fall Risk Assessment Last Done: 09/24/25 16:27
*ED COVID-19 Vaccine History Last Done: 09/24/25 16:27
*ED Influenza Vaccine History Last Done: 09/24/25 17:25
*Nursing Disposition Last Done: 09/24/25 22:50
ED- Neurological Assessment Last Done: 09/24/25 17:25
ED-Psychological Assessment Last Done: 09/24/25 17:25
Discharge Date and Time
Discharge Date/Time: 09/24/25 22:50
[2025-09-24] MEDS: KCL 270 MEQ IV (20:18)
--- NOTE | 2025-09-24 20:21 | HPS.HSE ---
Addendum entered and electronically signed by Jens Del Rosario MD 09/24/25 21:26:
This is an addendum to the H&P written by Zofia Mann on 09/24/2025. �Patient seen and examined independently with CELLULAR PHONE REPAIRER.
24-year-old male past medical history of alcohol use disorder, xanax use, cocaine use, history of likely alcohol seizures 2 years ago previously on Keppra, anxiety/depression, smoker presenting for help for assistance for alcohol overuse.�
He takes benzodiazepines to wean off of alcohol.
He was on Keppra 2 years ago which helped with seizures but stopped taking the medication.
Patient noted to have clenching of the jaw while in the emergency room but he was conscious.
Vital signs show heart rate up to 118.
Labs show white cell count of 4.4. �Sodium of 147. �Pneumonitis with AST of 264, ALT of 148. �Ammonia level negative.
Patient with acute alcohol withdrawal. �Transaminitis secondary to alcohol use.
IV fluids, alcohol withdrawal protocol, thiamine and folate, phenobarbital protocol. �Check UDS and alcohol level. �Patient seen by [facility] and given resources.
Alcohol level, UDS pending.
Original Note:
Family Physician
-
Family Physician: NOT KNOW UNKNOWN - PT DOES
Chief Complaint
-
Alcohol intoxication once detox
History of Present Illness
24-year-old male brought by EMS found at unknown residence in [place] intoxicated. The patient reported to EMS he drank 1/5 of vodka to 1 handle 1.75 L throughout the night. He is unsure his last drink he states he got to an argument with a
friend who dropped him off randomly in [place] so he walked up to a random stranger and asked for help. That stranger called EMS he believes he had 5 seizures today. EMS reported voluntary jerking of his arms and route to the ER. He had
reported movement left and right of his lower draw but no focal seizure appreciated by nurse. He is actively intoxicated with hiccups. He denies fever, chills, chest pain, palpitations, cough, shortness breath, abdominal pain, nausea, vomiting,
diarrhea, urinary symptoms. He is interested in detox inpatient only then intensive outpatient treatment at the [facility] with family services where he has stayed before since he lives in [place] near there. He has strong family
history of mother and father prior alcoholics, brother prior IV fentanyl use other brother marijuana use
Patient's past medical history of alcohol abuse x 10 years, alcohol withdrawal seizures starting in 2022, cocaine use active smoker/vape, ADHD, anxiety, depression, suicidal ideation
Medical History
Past Medical History
Past Medical History: Reports Other
Additional Past Medical History:
alcohol abuse x 10 years
alcohol withdrawal seizures
cocaine use�snorts
active smoker
ADHD
anxiety
Depression
suicidal ideation
Past Surgical History: Reports Other
Additional Past Surgical History:
Right arm fracture with repair
Right ankle surgery
Social History
Tobacco: Vaping (15,000 puffs vape every 1 to 2 days)
Alcohol: Daily (1/5 vodka to 1.75 L daily)
Drug: Cocaine and Other (Xanax 1 to 2 mg bars when trying to get off of alcohol)
Personal: Single
Living: With Roomate (With girlfriend and roommate)
Employment: Employed ([employer] Operator)
Family History
Family History: Other (strong family history of mother and father prior alcoholics, brother prior IV fentanyl use other brother marijuana use)
Allergies / Home Medications
Allergies reflects when Allergies were last updated in [facility].
Home Medications with original date entered in [facility]
Allergy/Medication List:
Allergies
Allergy/AdvReac Type Severity Reaction Status Date / Time
NKA - No Known Allergies Allergy Pharmacy Uncoded 09/24/25 16:26
to Review
Review of Systems
-
History Source: Patient
A 12 point ROS was completed and negative except as noted: Yes
Constitutional: Reports Other (Intoxicated); Denies Fatigue or Chills
EENT: Reports Other (Active hiccups); Denies Sore Throat or Runny Nose
Respiratory: Denies Cough or Trouble Breathing
Cardiac: Denies Chest Pain, Diaphoresis, Palpitations or Syncope
Abdomen/GI: Denies Abdominal Pain, Nausea, Vomiting, Diarrhea, Constipated, Bloody Stools or Black Stools
: Denies Dysuria, Frequency, Flank Pain, Incontinence, Difficulty Voiding, Urgency or Bleeding
Musculoskeletal: Denies Joint Pain or Edema
Skin: Denies Itching or Rash
Neurological: Denies Dizzy or Headache
Endocrine: Reports No Symptoms
Hematologic/Lymphatic: Reports No Symptoms
Psych: Reports Calm
Physical Exam
Vital Signs
Vital Signs
Temp Pulse Resp BP Pulse Ox
98.5 F 118 11 140/93 95
09/24/25 16:23 09/24/25 19:30 09/24/25 19:30 09/24/25 19:00 09/24/25 19:51
Physical Exam
General: Other (Intoxicated); No Fever or Chills
HEENT: NormoCephalic, Anicteric, PERRLA, [place] Conjunctivae, No Ptosis and Other (Dry oral mucosa)
Respiratory: Clear; No Wheezes, Rales or Rhonchi
Cardiac: S1/S2 and Tachycardia (Sinus); No Murmur, Rub, Gallop or Peripheral Edema
GI: Soft, Non Tender, Non Distended, Normal Bowel Sounds and No Hepatosplenomegaly
Rectal: Deferred by Provider
Genito-urinary: Deferred by me
Musculoskeletal: No Clubbing, No Cyanosis and No Edema
Skin: Warm and Dry; No Rash
Neuro: Cranial Nerves Intact, No Sensory Deficits and Other (Drowsy due to intoxication however is oriented x 3 slight difficulty with his story of events); No Slurred Speech, Facial Droop, Tremors or Sedated
Psych: Calm
Laboratory Results
-
09/24/25 16:36
09/24/25 16:36
Laboratory Results
Total Bilirubin 0.5 mg/dl (0.2-1.3) 09/24/25 16:36
AST 264 U/L (17-59) H 09/24/25 16:36
ALT 148 U/L (0-50) H 09/24/25 16:36
Alkaline Phosphatase 116 U/L (38-126) 09/24/25 16:36
Data Reviewed
-
Lab Data: Labs Reviewed by me
Impression/Plan
-
Impression/plan
Admit to telemetry
#Acute alcohol withdrawal
#Alcohol abuse with history of alcohol withdrawal seizures
140/93
-Used to be on Keppra started 2 years ago diagnosed with alcohol withdrawal seizures
Patient reports he drinks 1/5 of vodka 2 handle 1.75 L of vodka daily he has been drinking all night unsure last use
He attempted to stop drinking 1 month ago but was unable to get a hold of Xanax bars to use for withdrawal
-IV Ativan 4 mg total given in ER
- Phenobarb taper
- MSAs screen per protocol IV thiamine IV folate
-Banana bag given in ER
-Check alcohol level, UDS, mag
- Consult case management patient interested in only intensive outpatient [place] [facility]
#Acute transaminitis likely due to alcohol abuse
AST 264, ALT 148
#Hypernatremia likely due to hypovolemia
NA 147
-IV NSS 1 L
- Follow CMP
#Cocaine use, benzodiazepine use
- Reports snorts believes he snorted 3 weeks ago
States he uses Xanax when he wants to come down off of alcohol unsure last used approximately 1 month ago
-Check UDS
#Anxiety, depression
No current meds
#Active smoker Vapes nicotine 15,000 puffs every 1 to 2 days
Nicotine patch 21 mg
- Cessation advised
DVT prophylaxis
Subcu Lovenox
Full code
[2025-09-24] MEDS: MULTIVITAMIN 1011 ML IV (20:38)
[2025-09-24] MEDS: MULTIVITAMIN 1011 MG IV (20:38)
[2025-09-24 20:49] LABS: Magnesium 2.2 mg/dl (1.6-2.3)
[2025-09-24] MEDS: ZOFRAN 4 MG IV ×2 (21:51→23:14)
[2025-09-24] MEDS: NICODERM TRANSDERMAL 21 MG TRANSDERM (21:52)
[2025-09-25 00:10] LABS: INR 1.07; PT 14.2 Sec (11.4-14.6)
[2025-09-25 00:11] LABS: APTT 26.0 Sec (23.4-35.0)
--- NOTE | 2025-09-25 00:15 | PTCARENOTE ---
Addendum entered by Niki Pedersen, ABELARDO 09/25/25 00:17:
call bel within reach, oriented to his room
Original Note:
recieved pt via stretcher from ED, MSAS on going, able to transfer to bed, VSS and charted; on Tele NSS with S tach; mom at bedside, medications given as per order.
[2025-09-25] MEDS: PHENOBARBITAL 104 MG IV (00:26)
[2025-09-25] MEDS: LR 1000 IV ×2 (00:35→09:42)
[2025-09-25] MEDS: THIAMINE INJECTION 200 MG IV ×4 (00:35→23:29)
[2025-09-25 00:49] LABS: GGTP 228 U/L (15-73); Magnesium 1.7 mg/dl (1.6-2.3)
[2025-09-25 03:34] VITALS: BP 119/74
[2025-09-25] MEDS: ATIVAN 1 MG PO ×4 (05:03→15:53)
[2025-09-25 06:03] LABS: Urine Character Clear (Clear)
[2025-09-25 06:16] LABS: Urine Squamous Cell 16-20 /LPF (Few)
[2025-09-25 06:18] LABS: Urine Red Blood Cell 0-2 /HPF (0-2); Urine White Cell 0-2 /HPF (0-5)
[2025-09-25 07:10] VITALS: BP 121/69
[2025-09-25] MEDS: PHENOBARBITAL 97.5 MG IV ×3 (07:44→21:40)
[2025-09-25] MEDS: FOLVITE 1 MG PO (07:44)
[2025-09-25 08:12] LABS: Hematocrit 42.4 % (39.0-52.0); Hemoglobin 13.8 g/dL (13.0-18.0); Mean Corp Hgb Conc. 32.5 g/dL (33.0-37.0); Mean Corpuscular Volume 92.6 fL (80.0-94.0); Nucleated Red Blood Cells % 0 % (-); Platelet Count 218 10^3/uL (130-400); Red Cell Dist. Width 13.3 % (11.5-14.5)
--- NOTE | 2025-09-25 08:20 | W.PN.HOSP.TC ---
Today's Communication/Plan
-
see bold
Assessment / Plan
Assessment / Plan
HPI: 24-year-old male past medical history of alcohol use disorder, xanax use, cocaine use, history of likely alcohol seizures 2 years ago previously on Keppra, anxiety/depression, smoker presenting for help for assistance for alcohol overuse.�He
takes benzodiazepines to wean off of alcohol. He was on Keppra 2 years ago which helped with seizures but stopped taking the medication. Patient noted to have clenching of the jaw while in the emergency room but he was conscious. Vital signs show
heart rate up to 118.
Assessment assessment/plan:
#Acute alcohol withdrawal
#Alcohol abuse with history of alcohol withdrawal seizures
Used to be on Keppra started 2 years ago diagnosed with alcohol withdrawal seizures
Patient reports he drinks 1/5 of vodka 2 handle 1.75 L of vodka daily he has been drinking all night unsure last use
He attempted to stop drinking 1 month ago but was unable to get a hold of Xanax bars to use for withdrawal
Continue phenobarbital taper, IV/p.o. Ativan as needed, IVFs, MSAS protocol
Continue thiamine, folic acid, check UDS, add clonidine 0.1 mg BID w/ hold parameters
Case management consulted, patient interested in only intensive outpatient at [facility] [place] [facility] the [facility]
#Chest pain
Suspect secondary to cocaine use, check UDS
Troponins negative, EKG nonischemic
Continue to monitor
#Acute alcoholic hepatitis
AST 264, ALT 148
Trend
#Hypokalemia
Replete, recheck a.m. labs
#Hypoglycemia
Change IV fluids to D5 NS
#Hypernatremia
Resolved with IV fluids
#Cocaine use, benzodiazepine use
Reports snorts believes he snorted 3 weeks ago
States he uses Xanax when he wants to come down off of alcohol unsure last used approximately 1 month ago
Check UDS
#Anxiety, depression
No current meds
# Nicotine dependency Vapes nicotine 15,000 puffs every 1 to 2 days
Cessation advised
Nicotine patch 21 mg
DVT prophylaxis - Subcu Lovenox
Full code
Total time spent to see the patient on the floor, examine the patient, review data and lab results, discuss treatment plan with patient, nursing staff around 51 minutes.
Physical Exam
General: Appears to be in acute alcohol withdrawal
HEENT: Normocephalic, Atraumatic, EOMI, MMM
Respiratory: Clear to Auscultation bilaterally
Cardiac: Normal S1/S2, tachycardic rate and Rhythm
GI: Soft, Nontender, Nondistended, Normal Bowel Sounds
Extremities: No Clubbing, Cyanosis, or Edema
Neuro: Bilateral hand tremors
Psych: Calm, Cooperative
Anticipated Discharge: > 48 hours
Subjective/Interval History
-
Date of Service: September 25, 2025
Patient complains of severe withdrawal symptoms. He has hand tremors, headache, vomiting. Patient reports chest pain, denies shortness of breath. No fever.
Objective Data
-
Labs:
Laboratory Results
09/24/25 09/25/25
23:50 06:08
WBC 4.7 L
Hgb 13.8
Hct 42.4
Plt Count 218
PT 14.2
INR 1.07
APTT 26.0
Sodium Pending
Potassium Pending
Chloride Pending
Carbon Dioxide Pending
BUN Pending
Creatinine Pending
Glucose Pending
Calcium Pending
Total Bilirubin Pending
AST Pending
ALT Pending
Alkaline Phosphatase Pending
Vital Signs:
Vital Signs
Temp Pulse Resp BP Pulse Ox
97.9 F 96 18 119/74 98
09/25/25 03:34 09/25/25 03:34 09/25/25 03:34 09/25/25 03:34 09/25/25 03:34
I&O
09/24/25 09/25/25 09/26/25
06:59 06:59 06:59
Intake Total 2229 / 2229
Balance 2229
[2025-09-25 08:39] LABS: ALT (SGPT) 127 U/L (0-50); AST (SGOT) 218 U/L (17-59); Albumin 4.0 g/dl (3.5-5.0); Alkaline Phosphatase 94 U/L (38-126); Blood Urea Nitrogen 6 mg/dl (9-20); Calcium 7.6 mg/dl (8.4-10.2); Carbon Dioxide 22 mmol/L (22-30); Chloride 103 mmol/L (98-107); Estimated Creatinine Clearance > 125 ml/min; Glucose 67 mg/dl (70-99); Potassium 3.2 mmol/L (3.5-5.1); Sodium 138 mmol/L (135-145); Total Protein 6.5 g/dl (6.3-8.2); eGFR > 60.00
[2025-09-25] MEDS: NICODERM TRANSDERMAL 21 MG TRANSDERM (09:42)
[2025-09-25 10:46] LABS: Troponin I < 0.012 ng/ml
[2025-09-25 10:59] VITALS: BP 141/75
[2025-09-25] MEDS: KCL 40 MEQ PO (12:12)
[2025-09-25] MEDS: CATAPRES 0.1 MG PO ×2 (13:47→20:18)
[2025-09-25] MEDS: D5/0.9% SODIUM CHLORIDE 1000 IV (13:48)
[2025-09-25] MEDS: ZOFRAN 4 MG IV (13:56)
[2025-09-25 15:35] VITALS: BP 161/97
[2025-09-25] MEDS: LOVENOX 40 MG SC (17:09)
[2025-09-25 19:43] VITALS: BP 133/93
[2025-09-25 23:46] VITALS: BP 135/95
[2025-09-26] MEDS: D5/0.9% SODIUM CHLORIDE 1000 IV (02:23)
[2025-09-26 03:21] VITALS: BP 125/87
[2025-09-26 07:09] LABS: ALT (SGPT) 116 U/L (0-50); AST (SGOT) 119 U/L (17-59); Albumin 4.0 g/dl (3.5-5.0); Alkaline Phosphatase 88 U/L (38-126); Blood Urea Nitrogen 4 mg/dl (9-20); Calcium 8.6 mg/dl (8.4-10.2); Carbon Dioxide 29 mmol/L (22-30); Chloride 100 mmol/L (98-107); Estimated Creatinine Clearance > 125 ml/min; Glucose 111 mg/dl (70-99); Magnesium 1.5 mg/dl (1.6-2.3); Potassium 3.7 mmol/L (3.5-5.1); Sodium 134 mmol/L (135-145); Total Protein 6.7 g/dl (6.3-8.2); eGFR > 60.00
[2025-09-26 07:10] VITALS: BP 125/78
[2025-09-26] MEDS: CATAPRES PO (08:07)
[2025-09-26] MEDS: PHENOBARBITAL 97.5 MG IV ×2 (08:08→15:46)
[2025-09-26] MEDS: NICODERM TRANSDERMAL 21 MG TRANSDERM (08:09)
[2025-09-26] MEDS: FOLVITE 1 MG PO (08:09)
[2025-09-26] MEDS: THIAMINE INJECTION 200 MG IV ×2 (08:09→15:47)
--- NOTE | 2025-09-26 09:16 | W.PN.HOSP.TC ---
Today's Communication/Plan
-
Discharge today as per patient request
Assessment / Plan
Assessment / Plan
HPI: 24-year-old male past medical history of alcohol use disorder, xanax use, cocaine use, history of likely alcohol seizures 2 years ago previously on Keppra, anxiety/depression, smoker presenting for help for assistance for alcohol overuse.�He
takes benzodiazepines to wean off of alcohol. He was on Keppra 2 years ago which helped with seizures but stopped taking the medication. Patient noted to have clenching of the jaw while in the emergency room but he was conscious. Vital signs show
heart rate up to 118.
Assessment assessment/plan:
#Acute alcohol withdrawal
#Alcohol abuse with history of alcohol withdrawal seizures
Used to be on Keppra started 2 years ago diagnosed with alcohol withdrawal seizures
Patient reports he drinks 1/5 of vodka 2 handle 1.75 L of vodka daily he has been drinking all night unsure last use
He attempted to stop drinking 1 month ago but was unable to get a hold of Xanax bars to use for withdrawal
Continue phenobarbital taper, Ativan as needed, MSAS protocol
Continue thiamine, folic acid, added clonidine 0.1 mg BID w/ hold parameters
Case management consulted, patient interested in only intensive outpatient at [facility] [place] at the [facility]
09/26 -Despite counseling patient, he is adamant about leaving the hospital today, since he has to work at 5 AM tomorrow
Will discharge him on short phenobarbital taper, thiamine, folic acid, and clonidine as per his request
He has been counseled to not drink alcohol or take any illegal substances while taking his phenobarbital, as this can cause
He reports understanding
#Chest pain
Troponins negative, EKG nonischemic
Continue to monitor
#Hypomagnesemia
Magnesium 1.5 today, will give magnesium sulfate 2 g IV x 1
#Acute alcoholic hepatitis
AST 264, ALT 148
Trend
#Hypokalemia
Repleted and resolved
#Hypoglycemia
Resolved
#Hypernatremia
Resolved with IV fluids
#Cocaine use, benzodiazepine use
Reports snorts believes he snorted 3 weeks ago
States he uses Xanax when he wants to come down off of alcohol unsure last used approximately 1 month ago
#Anxiety, depression
No current meds
# Nicotine dependency Vapes nicotine 15,000 puffs every 1 to 2 days
Cessation advised
Nicotine patch 21 mg
DVT prophylaxis - Subcu Lovenox
Full code
Physical Exam
General: Appears to be in acute alcohol withdrawal
HEENT: Normocephalic, Atraumatic, EOMI, MMM
Respiratory: Clear to Auscultation bilaterally
Cardiac: Normal S1/S2, reg rate and Rhythm
GI: Soft, Nontender, Nondistended, Normal Bowel Sounds
Extremities: No Clubbing, Cyanosis, or Edema
Neuro: No hand tremors
Psych: Calm, Cooperative
Anticipated Discharge: Today
Subjective/Interval History
-
Date of Service: September 26, 2025
Patient reports feeling much better. His hand tremors have resolved. His headache and vomiting have also resolved. No fever, no vomiting.
Objective Data
-
Labs:
Laboratory Results
09/26/25
06:22
Sodium 134 L
Potassium 3.7
Chloride 100
Carbon Dioxide 29
BUN 4 L
Creatinine 0.8
Glucose 111 H
Calcium 8.6
Total Bilirubin 1.8 H
AST 119 H
ALT 116 H
Alkaline Phosphatase 88
Vital Signs:
Vital Signs
Temp Pulse Resp BP Pulse Ox
98.0 F 76 16 125/78 97
09/26/25 07:10 09/26/25 08:07 09/26/25 07:10 09/26/25 08:07 09/26/25 07:10
I&O
09/25/25 09/26/25 09/27/25
06:59 06:59 06:59
Intake Total 2230 / 2230 2540 / 2540
Output Total 1700 / 1700
Balance 2230 / 2230 840 / 840
[2025-09-26] MEDS: MAGNESIUM SULFATE 50 IV (09:43)
[2025-09-26 11:02] VITALS: BP 106/68
--- NOTE | 2025-09-26 12:36 | CM ---
Addendum entered by Marva Robles 09/26/25 15:44:
Pt now clearing for dc today
Call with [facility]- plan to pt to F/U [facility] for services
Discharge Disposition- home with outpt D/A
Original Note:
CM met with pt and mother bedside
Pt resides with his SO/[place] in a 1st floor apartment, 6STE down into apartment and 1 threshold
Pt is independent, no DMEs
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
Pt in agreement with referral to [facility] for intensive outpt
Referral made
SO's 7 y/o l dtr lives in apartment
He noted he is not a caregiver for child and she is never left alone in his care
His SO does not work and is always with child
Discharge Disposition- IOP/[facility]
--- NOTE | 2025-09-26 13:02 | W.DCSUMMARY ---
Discharge Summary
Discharge Data
Date of Admission: 09/24/25
Date of Discharge: 09/26/25
-
Pending Results: No
Hospital Course
Discharge diagnosis:
Acute alcohol withdrawal
Alcohol abuse with history of alcohol withdrawal seizures
Chest pain
Hypomagnesemia
Acute alcoholic hepatitis
Hypokalemia
Hypoglycemia
Hypernatremia
History of cocaine abuse
Anxiety/depression
Nicotine dependency through vaping
Hospital course:
24-year-old male with a past medical history of anxiety/depression, cocaine abuse, alcohol abuse with dependency, and nicotine dependency through vaping who was admitted for acute alcohol withdrawal. Patient was treated with IV fluids,
phenobarbital taper, and IV/oral Ativan. After a few days, he reports feeling better. His magnesium was 1.5, he received 2 g of IV magnesium sulfate. He was counseled that he still needs to stay in the hospital for continued treatment. Despite
this counseling, he was adamant about going home since he has to work at 5 AM tomorrow. Patient was discharged home per his request. He was discharged on a short phenobarbital taper, thiamine, folic acid, and clonidine as needed. He has been
instructed to attend the intensive outpatient rehab program, as well as go to Alcoholics Anonymous meetings. He reports understanding. He also needs to follow-up with his PCP in 1 week.
Disposition: Home self-care
Discharge planning: Required 38 minutes
Discharge Plan
-
Patient Disposition: Home (Routine Discharge)
Discharge Diagnosis/Procedures: Severe alcohol withdrawal
Condition: Fair
Diet: Regular
Activity Restrictions/Additional Instructions:
Please do not drink alcohol or take any illegal substances while taking phenobarbital, as this can cause .
Recommend you attend AA meetings, do 90 steps in 90 days, work the program, get a sponsor, do the 12 steps.
Please also attend your intensive outpatient rehab program.
Please follow-up with your primary care provider in 1 week.
Referrals:
UNKNOWN - PT DOES,NOT KNOW [Family Provider]
Prescriptions:
New
clonidine HCl 0.1 mg Tablet
0.1 mg PO BID PRN (Reason: withdrawl symptoms) Qty: 15 0RF
folic acid 1 mg Tablet
1 mg PO DAILY Qty: 30 0RF
phenobarbital 32.4 mg Tablet
See Rx Instructions .ROUTE .COMPLEX Qty: 24 0RF
Rx Instructions:
3 tabs BID x 2 days, 2 tabs BID x 2 days, then 1 tab BID x 2 days, then stop
thiamine mononitrate (vit B1) 100 mg Tablet
100 mg PO BID Qty: 60 0RF
Discharge Orders:
Discharge Patient (As Directed); Ordered 09/26/25
Ordered By: Bo Pineda
Discharge Date and Time
Print Language: ARABIC
[2025-09-26 15:10] VITALS: BP 142/88
== END 2025-09-26 16:20 | disposition home or self-care (01) | DRG 897 ==
LOC: 2 NORTH 21:22
PROVIDERS: Clinical Nurse Specialist Family Health; ADMITTING PHYSICIAN Hospitalist; ATTENDING PHYSICIAN Family Medicine; EMERGENCY PHYSICIAN Emergency Medicine
DX: F10.239 Alcohol dependence with withdrawal, unspecified (principal); E87.0 Hyperosmolality and hypernatremia; R45.851 Suicidal ideations; E87.1 Hypo-osmolality and hyponatremia; E83.42 Hypomagnesemia; K70.10 Alcoholic hepatitis without ascites; E87.6 Hypokalemia; E16.2 Hypoglycemia, unspecified; F14.11 Cocaine abuse, in remission; F32.A Depression, unspecified; F41.9 Anxiety disorder, unspecified; R07.9 Chest pain, unspecified; J98.4 Other disorders of lung; F90.9 Attention-deficit hyperactivity disorder, unspecified type; R06.6 Hiccough; E86.1 Hypovolemia; F17.290 Nicotine dependence, other tobacco product, uncomplicated; I10 Essential (primary) hypertension
CPT/HCPCS: 80053; 80306; 80307; 81003; 81015; 82010; 82077; 82140; 82977; 83735; 84100; 84484; 85025; 85610; 85730; 93005; 96361; 96365; 96366; 96375; 96376; 99291